=== PATIENT | male | born 1980 | race Caucasian/White ===

== ENCOUNTER 2021-07-25 12:41 | Outpatient (CLI) | payer OTHER ==
--- NOTE | 2021-07-25 14:56 | XRay Report ---
LEFT KNEE 3 VIEW(S) INDICATION / CLINICAL INFORMATION: LEFT KNEE PAIN COMPARISON: None available. FINDINGS: BONES / JOINT(S): No acute fracture or subluxation. No significant arthritis. SOFT TISSUES: No significant abnormality. ADDITIONAL FINDINGS: None. Signer Name: Richard Esqueda DO Signed: 07/25/2021 2:49 PM Workstation Name: [employer]
== END 2021-07-25 12:42 | disposition home or self-care (01) ==
LOC: XRAY 12:41
PROVIDERS: ATTEND Psychiatry & Neurology Psychiatry
DX: M25.562 Pain in left knee (principal)